=== PATIENT | female | born 1995 | race Caucasian/White ===

== ENCOUNTER 2023-05-01 14:05 | Emergency (ER) | payer BC, OTHER ==
[~2023-05-01] VITALS: Ht 177.8 cm; Wt 117.9 kg
[2023-05-01 15:14] VITALS: BP_SYST 126; PULSE 82; RESP 18; TEMP 97.8; O2SAT 99
[2023-05-01 16:18] VITALS: BP_SYST 126; PULSE 82; RESP 18; TEMP 97.8; O2SAT 99
== END 2023-05-01 16:18 | disposition home or self-care (01) ==
LOC: SED 14:05
DX: R19.7 Diarrhea, unspecified (principal); Z79.899 Other long term (current) drug therapy
CPT/HCPCS: 99281